=== PATIENT | male | born 1990 | race American Indian/Alaskan Native ===

== ENCOUNTER 2018-05-27 00:48 | Emergency (ER) | payer MEDICAID, OTHER ==
--- NOTE | 2018-05-27 01:27 | EDM.PDOC ---
ED HPI GENERAL MEDICAL PROBLEM - General Chief Complaint: Back Pain or Injury Stated Complaint: LOWER BACK PAIN [id number] Time Seen by Provider: 05/27/18 00:55 Source of Information: Reports: Patient History Limitations: Reports: No Limitations - History of Present Illness INITIAL COMMENTS - FREE TEXT/NARRATIVE: presents with c/o low back pain constant but worse at times with shooting pain around both sides and at times to testicle area or rectal area. No fever or chills, No injury no abdominal pain, no nausea or vomiting. No difficulty with urination, no burning, frequency or discharge. Denies concern for STD. Pain not affected by movement. One dose tylenol 2000mg one time around 2 pm but did not help. 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 [No Known Home Meds] 05/27/18 [History] Past Medical History - Past Health History Medical/Surgical History: Denies Medical/Surgical History - Past Surgical History Other Musculoskeletal Surgeries/Procedures:: fracture both arms Social & Family History - Tobacco Use Smoking Status *Q: Never Smoker - Caffeine Use Caffeine Use: Reports: Soda - Recreational Drug Use Recreational Drug Use: No ED ROS GENERAL - Review of Systems Review Of Systems: ROS reveals no pertinent complaints other than HPI. ED EXAM,LOWER BACK PAIN/INJURY - Physical Exam Exam: See Below Exam Limited By: No Limitations General Appearance: Alert, No Apparent Distress (moves easily no guarding.) Eye Exam: Bilateral Eye: EOMI Ears: Normal External Exam Nose: Normal Inspection Throat/Mouth: Normal Inspection, Normal Voice Head: Atraumatic, Normocephalic Neck: Normal Inspection Respiratory/Chest: No Respiratory Distress, Lungs Clear, Normal Breath Sounds Cardiovascular: Normal Peripheral Pulses, Regular Rate, Rhythm GI/Abdominal: Soft, Non-Tender Back Exam: Full Range of Motion. No: CVA Tenderness (L), CVA Tenderness (R), Paraspinal Tenderness, Vertebral Tenderness Extremities: Normal Inspection, Normal Range of Motion Neurological: Alert, Normal Mood/Affect, Normal Dorsiflexion, CN II-XII Intact, Normal Plantar Flexion, Normal Gait, Normal Reflexes, No Motor/Sensory Deficits. No: Straight Leg Raise (L), Straight Leg Raise (R), Difficulty Walking Psychiatric: Normal Affect Skin Exam: Warm, Dry, Intact, Normal Color Course - Vital Signs Last Recorded V/S: Last Vital Signs Temp 96.9 F 05/27/18 00:51 Pulse 86 05/27/18 00:51 Resp 19 05/27/18 00:51 BP 155/106 H 05/27/18 00:51 Pulse Ox 98 05/27/18 00:51 - Orders/Labs/Meds Orders: Active Orders 24 hr Category Date Time Status CHLAMYDIA AND GONORRHEA BY TMA Stat Lab 05/27/18 00:58 Received Labs: Laboratory Tests 05/27/18 05/27/18 Range/Units 00:58 00:58 Urine Color Yellow (YELLOW) Urine Appearance Clear (CLEAR) Urine pH 5.5 (5.0-9.0) Ur Specific [place] 1.010 (1.005-1.030) Urine Protein 30 H (NEGATIVE) Urine Glucose (UA) Negative (NEGATIVE) Urine Ketones Negative (NEGATIVE) Urine Occult Blood Trace-lysed H (NEGATIVE) Urine Nitrite Negative (NEGATIVE) Urine Bilirubin Negative (NEGATIVE) Urine Urobilinogen 0.2 (0.2-1.0) mg/dL Ur Leukocyte Esterase Negative (NEGATIVE) Urine RBC 0-5 /HPF Urine WBC 0-5 (0-5/HPF) /HPF Ur Epithelial Cells Few /HPF Urine Bacteria Few (0-FEW/HPF) /HPF Urine Opiates Screen Negative (NEGATIVE) Ur Oxycodone Screen Negative (NEGATIVE) Urine Methadone Screen Negative (NEGATIVE) Ur Barbiturates Screen Negative (NEGATIVE) U Tricyclic Antidepress Negative (NEGATIVE) Ur Phencyclidine Scrn Negative (NEGATIVE) Ur Amphetamine Screen Negative (NEGATIVE) U Methamphetamines Scrn Negative (NEGATIVE) Urine MDMA Screen Negative (NEGATIVE) U Benzodiazepines Scrn Negative (NEGATIVE) Urine Cocaine Screen Negative (NEGATIVE) U Marijuana (THC) Screen Negative (NEGATIVE) Departure - Departure Time of Disposition: 01:24 Disposition: Home, Self-Care 01 Condition: Good Clinical Impression: Back pain Qualifiers: Back pain location: low back pain Chronicity: acute Back pain laterality: bilateral Sciatica presence: without sciatica Qualified Code(s): M54.5 - Low back pain - Discharge Information Instructions: Back Pain, Adult, [id number] Forms: ED Department Discharge Additional Instructions: light activity increase fluid intake alternate ibuprofen 600mg and tylenol 650mg every 4 hours as needed for discomfort follow up needed if weakness, increased pain, fever or chills - My Orders Last 24 Hours: My Active Orders 05/27/18 00:58 CHLAMYDIA AND GONORRHEA BY TMA Stat - Assessment/Plan Last 24 Hours: My Active Orders 05/27/18 00:58 CHLAMYDIA AND GONORRHEA BY TMA Stat
== END 2018-05-27 01:32 | disposition home or self-care (01) ==
LOC: DL.ED 00:48
DX: M54.5 Low back pain (principal)
CPT/HCPCS: 80305; 81001; 87491; 87591; 99283

== ENCOUNTER 2020-01-23 13:13 | Emergency (ER) | payer MEDICAID, OTHER ==
--- NOTE | 2020-01-23 16:07 | EDM.PDOC ---
Scribed by Barbara Perla 01/23/20 4515 for Autumn Castañeda NP ED HPI GENERAL MEDICAL PROBLEM - General Chief Complaint: Lower Extremity Injury/Pain Stated Complaint: LOWER BACK PAIN Time Seen by Provider: 01/23/20 13:35 Source of Information: Reports: Patient, RN, RN Notes Reviewed History Limitations: Reports: No Limitations - History of Present Illness INITIAL COMMENTS - FREE TEXT/NARRATIVE: Patient is a 29-year-old male who presents to the ED with lower back pain x3 days. He states that he woke up this afternoon in pain. Pain is a rated as a 2/ 10 and described as an ache. He denies any injury, fall or trauma. He states he is not working and has been sitting and sleeping most of the time. He has Tylenol once for discomfort. He denies any saddle anesthesia. No history of back problems. Onset: Gradual Duration: Constant Location: Reports: Back Quality: Reports: Ache Severity: Mild Improves with: Reports: None Worsens with: Reports: None Associated Symptoms: Reports: No Other Symptoms Lower Back Pain Score (Numeric/FACES): 6 - Related Data Allergies Allergy/AdvReac Type Severity Reaction Status Date / Time No Known Allergies Allergy Verified 01/23/20 13:43 Home Meds: Home Meds Acetaminophen [Tylenol] 650 mg PO Q6HR PRN 01/23/20 [History] Past Medical History - Past Health History Medical/Surgical History: Denies Medical/Surgical History - Past Surgical History Other Musculoskeletal Surgeries/Procedures:: fracture both arms Social & Family History - Tobacco Use Smoking Status *Q: Never Smoker - Caffeine Use Caffeine Use: Reports: Soda, Tea - Recreational Drug Use Recreational Drug Use: No Review of Systems - Review of Systems Review Of Systems: Comprehensive ROS is negative, except as noted in HPI. ED EXAM, GENERAL - Physical Exam Exam: See Below Exam Limited By: No Limitations General Appearance: Alert, WD/WN, No Apparent Distress Respiratory/Chest: No Respiratory Distress, Lungs Clear, Normal Breath Sounds, No Accessory Muscle Use, Chest Non-Tender Cardiovascular: Normal Peripheral Pulses, Regular Rate, Rhythm, No Edema, No Gallop, No JVD, No Murmur, No Rub GI/Abdominal: Normal Bowel Sounds, Soft, Non-Tender, No Organomegaly, No Distention, No Abnormal Bruit, No Mass Back Exam: Normal Inspection, Full Range of Motion, Other (mild pain noted with palpation at L4-5 with no radiation. ) Neurological: Alert, Oriented Psychiatric: Normal Affect, Normal Mood Skin Exam: Warm, Dry, Intact, Normal Color, No Rash Course - Vital Signs Last Recorded V/S: Last Vital Signs Temp 97.6 F 01/23/20 13:39 Pulse 108 H 01/23/20 13:39 Resp 18 01/23/20 13:39 BP 167/97 H 01/23/20 13:39 Pulse Ox 99 01/23/20 13:39 - Re-Assessments/Exams Free Text/Narrative Re-Assessment/Exam: Exam findings reviewed with patient. Encouraged applying heat/ice interchangeably. Tylenol and Ibuprofen with meals p.r.n. for pain. Follow up with PCP next week, if symptoms worsen. Departure - Departure Time of Disposition: 16:05 Disposition: Home, Self-Care 01 Condition: Good Clinical Impression: Low back pain - Discharge Information Instructions: Back Exercises, [id number] Forms: ED Department Discharge Additional Instructions: Encouraged applying heat/ice interchangeably. Tylenol and Ibuprofen with meals p.r.n. for pain. Follow up with PCP next week, if symptoms worsen. Sepsis Event Note - Evaluation Sepsis Screening Result: No Definite Risk - Focused Exam Vital Signs: Vital Signs Temp Pulse Resp BP Pulse Ox 01/23/20 13:39 97.6 F 108 H 18 167/97 H 99 Date Exam was Performed: 01/23/20 Time Exam was Performed: 16:07 I have read and agree with the documentation that has been completed regarding this visit. By signing this record, I attest that the documentation was completed in my physical presence and is an accurate record of the encounter.
== END 2020-01-23 16:12 | disposition home or self-care (01) ==
LOC: DL.ED 13:13
DX: M54.5 Low back pain (principal)
CPT/HCPCS: 99282; 99283

== ENCOUNTER 2021-03-19 20:19 | Emergency (ER) | payer SELFPAY ==
[2021-03-19] MEDS ORDERED: Doxycycline Monohydrate 100 MG Cap PO ONE (20:20)
[2021-03-19] MEDS ORDERED: Doxycycline Monohydrate 100 MG Cap ONE (22:02)
[2021-03-19] MEDS ORDERED: Mupirocin Oint 22 GM Tube ONE (22:02)
--- NOTE | 2021-03-19 22:08 | EDM.PDOC ---
ED HPI GENERAL MEDICAL PROBLEM - General Chief Complaint: Skin Complaint Stated Complaint: SORE ON FACE / HEADACHE Time Seen by Provider: 03/19/21 21:25 Source of Information: Reports: Patient History Limitations: Reports: No Limitations - History of Present Illness INITIAL COMMENTS - FREE TEXT/NARRATIVE: sores to left side of face and forehead x 2 days. Location: Reports: Head, Face Left Face/Facial Pain Score (Numeric/FACES): 10 - Related Data Allergies Allergy/AdvReac Type Severity Reaction Status Date / Time No Known Allergies Allergy Verified 03/19/21 21:12 Home Meds: Home Meds Acetaminophen [Tylenol] 650 mg PO Q6HR PRN 01/23/20 [History] metFORMIN [Glucophage XR] 500 mg PO BIDMEALS 03/19/21 [History] Past Medical History - Past Health History Medical/Surgical History: Denies Medical/Surgical History Endocrine/Metabolic History: Reports: Diabetes, Type II - Past Surgical History Other Musculoskeletal Surgeries/Procedures:: fracture both arms Social & Family History - Tobacco Use Tobacco Use Status *Q: Never Tobacco User Second Hand Smoke Exposure: No - Caffeine Use Caffeine Use: Reports: None - Recreational Drug Use Recreational Drug Use: No ED ROS GENERAL - Review of Systems Review Of Systems: Comprehensive ROS is negative, except as noted in HPI. ED EXAM, SKIN/RASH Exam: See Below Exam Limited By: No Limitations General Appearance: Alert, Mild Distress Eye Exam: Bilateral Eye: EOMI, PERRL Ears: Normal External Exam, Hearing Grossly Normal Nose: Normal Inspection Throat/Mouth: Normal Inspection Head: Atraumatic, Normocephalic Neck: Normal Inspection Respiratory/Chest: No Respiratory Distress Cardiovascular: Normal Peripheral Pulses, Regular Rate, Rhythm GI/Abdominal: Soft Back Exam: Normal Inspection Extremities: Normal Inspection Neurological: Alert, Oriented, Normal Gait Skin: Warm, Dry, Other (abscess mid forehead brow line 1cm multiple small crusted sustules, scattered red patches scalp and left parietal hairline, , ) Course - Vital Signs Last Recorded V/S: Last Vital Signs Temp 96.8 F L 03/19/21 21:13 Pulse 99 03/19/21 21:13 Resp 20 03/19/21 21:13 BP 167/88 H 03/19/21 21:13 Pulse Ox 96 03/19/21 21:13 - Orders/Labs/Meds Meds: Medications Discontinued Medications Generic Name Dose Route Start Last Admin Trade Name Patricia PRN Reason Stop Dose Admin Doxycycline Monohydrate Confirm 03/19/21 22:02 Doxycycline Monohydrate 100 Mg Cap Administered 03/19/21 22:03 Dose 200 mg .ROUTE .STK-MED ONE Mupirocin Confirm 03/19/21 22:02 Mupirocin Oint 22 Gm Tube Administered 03/19/21 22:03 Dose 22 gm .ROUTE .STK-MED ONE Departure - Departure Time of Disposition: 22:03 Disposition: Home, Self-Care 01 Condition: Good Clinical Impression: Abscess - Discharge Information *PRESCRIPTION DRUG MONITORING PROGRAM REVIEWED*: No *COPY OF PRESCRIPTION DRUG MONITORING REPORT IN PATIENT MARCO: No Instructions: Skin Abscess, [id number] Forms: ED Department Discharge Additional Instructions: mupirocin to area twice daily doxycycline 100mg twice daily warm pack three times daily to abscess areas clinic follow up later this week to recheck alternate tylenol 650mg and ibuprofen 600mg every 4 hours as needed for discomfort Sepsis Event Note (ED) - Evaluation Sepsis Screening Result: No Definite Risk - Focused Exam Vital Signs: Vital Signs Temp Pulse Resp BP Pulse Ox 03/19/21 21:13 96.8 F L 99 20 167/88 H 96
== END 2021-03-19 22:11 | disposition home or self-care (01) ==
LOC: DL.ED 20:19
DX: L02.01 Cutaneous abscess of face (principal); E11.9 Type 2 diabetes mellitus without complications; Z79.84 Long term (current) use of oral hypoglycemic drugs
CPT/HCPCS: 99282; 99283; A9270-GY

== ENCOUNTER 2021-06-27 13:29 | Emergency (ER) | payer SELFPAY ==
--- NOTE | 2021-06-27 14:27 | EDM.PDOC ---
ED HPI GENERAL MEDICAL PROBLEM - General Chief Complaint: Diabetic Complaint Stated Complaint: HIGH BLOOD SUGAR Time Seen by Provider: 06/27/21 14:19 Source of Information: Reports: Patient, RN, RN Notes Reviewed History Limitations: Reports: No Limitations - History of Present Illness INITIAL COMMENTS - FREE TEXT/NARRATIVE: Tulio is a 31 y/o male with a history of DM II who presents to the ED via personal vehicle with complaints of high blood sugar and polydipsia. The patient reports he was diagnosed with DM II in March 2021 and has been out of his metformin since March 2021. He states he woke this morning and felt an increase in thirst which prompted him to check his blood sugar, something he has not done in over 30 days, with a reading of 449. He denies recent illness, fever, shaking chills, chest pain, shortness of breath, nausea, vomiting, diarrhea, abdominal pain, or dysuria. He has taken no medications for his blood sugar. He denies tobacco, alcohol, or recreational drug use. Treatments BRANCH GENERAL MANAGER: Reports: Other (see below) Other Treatments BRANCH GENERAL MANAGER: Bedside gluc - Related Data Allergies Allergy/AdvReac Type Severity Reaction Status Date / Time No Known Allergies Allergy Verified 06/27/21 13:50 Home Meds: Home Meds Acetaminophen [Tylenol] 650 mg PO Q6HR PRN 01/23/20 [History] metFORMIN [Glucophage XR] 500 mg PO BIDMEALS 03/19/21 [History] Past Medical History - Past Health History Medical/Surgical History: Denies Medical/Surgical History HEENT History: Reports: None Cardiovascular History: Reports: None Respiratory History: Reports: None Gastrointestinal History: Reports: None Genitourinary History: Reports: None Musculoskeletal History: Reports: None Neurological History: Reports: None Psychiatric History: Reports: None Endocrine/Metabolic History: Reports: Diabetes, Type II Hematologic History: Reports: None Immunologic History: Reports: None Dermatologic History: Reports: None - Infectious Disease History Infectious Disease History: Reports: None - Past Surgical History Head Surgeries/Procedures: Reports: None Other Musculoskeletal Surgeries/Procedures:: fracture both arms Social & Family History - Family History Family Medical History: No Pertinent Family History - Tobacco Use Tobacco Use Status *Q: Never Tobacco User - Caffeine Use Caffeine Use: Reports: Soda - Recreational Drug Use Recreational Drug Use: No ED ROS GENERAL - Review of Systems Review Of Systems: Comprehensive ROS is negative, except as noted in HPI. ED EXAM GENERAL NO PERIP PULSE - Physical Exam Exam: See Below Exam Limited By: No Limitations General Appearance: Alert, No Apparent Distress Eye Exam: Bilateral Eye: EOMI, Normal Inspection, PERRL (3m) Ears: Normal External Exam, Hearing Grossly Normal Nose: Normal Inspection, Normal Mucosa, No Blood Throat/Mouth: Normal Inspection, Normal Oropharynx, Normal Voice, No Airway Compromise Head: Atraumatic, Normocephalic Neck: Normal Inspection, Supple, Non-Tender, Full Range of Motion. No: Lymphadenopathy (L), Lymphadenopathy (R) Respiratory/Chest: No Respiratory Distress, Lungs Clear, Normal Breath Sounds, No Accessory Muscle Use, Chest Non-Tender Cardiovascular: Normal Peripheral Pulses, Regular Rate, Rhythm, No Edema, No Gallop, No JVD, No Murmur, No Rub, Tachycardia GI/Abdominal: Normal Bowel Sounds, Soft, Non-Tender, No Distention, No Abnormal Bruit, No Mass, Pelvis Stable (Male) Exam: Deferred Rectal (Males) Exam: Deferred Back Exam: Normal Inspection, Full Range of Motion Extremities: Normal Inspection, Normal Range of Motion, Non-Tender, Normal Capillary Refill, No Pedal Edema Neurological: Alert, Oriented, CN II-XII Intact, Normal Cognition, Normal Gait, No Motor/Sensory Deficits Psychiatric: Normal Affect, Normal Mood Skin Exam: Warm, Dry, Intact, Normal Color, No Rash Lymphatic: No Adenopathy Course - Vital Signs Last Recorded V/S: Last Vital Signs Temp 97.5 F 06/27/21 13:40 Pulse 102 H 06/27/21 13:40 Resp 16 06/27/21 13:40 BP 158/104 H 06/27/21 13:40 Pulse Ox 99 06/27/21 13:40 - Orders/Labs/Meds Orders: Active Orders 24 hr Category Date Time Status Blood Glucose Check, Bedside [RC] ONETIME Care 06/27/21 13:48 Active UA RFX LASHANDA AND CULT IF INDIC [URIN] Stat Lab 06/27/21 13:55 Ordered Labs: Laboratory Tests 06/27/21 06/27/21 06/27/21 Range/Units 13:37 14:03 14:03 WBC 10.0 (5.0-10.0) 10^3/uL RBC 5.33 (4.6-6.2) 10^6/uL Hgb 14.6 (14.0-18.0) g/dL Hct 42.2 (40.0-54.0) % MCV 79.2 L (80-100) fL MCH 27.4 (27.0-34.0) pg MCHC 34.6 (33.0-35.0) g/dL Plt Count 333 (150-450) 10^3/uL Neut % (Auto) 61.2 (42.2-75.2) % Lymph % (Auto) 28.1 (20.5-50.1) % [place] % (Auto) 7.6 (2-8) % Eos % (Auto) 2.0 (1.0-3.0) % Baso % (Auto) 1.1 H (0.0-1.0) % Sodium 138 (136-145) mmol/L Potassium 3.7 (3.5-5.1) mmol/L Chloride 98 (98-107) mmol/L Carbon Dioxide 28 (21-32) mmol/L Anion Gap 15.7 H (7-13) mEq/L BUN 13 (7-18) mg/dL Creatinine 0.99 (0.70-1.30) mg/dL Est Cr Clr Drug Dosing 103.64 mL/min Estimated GFR (MDRD) > 60 BUN/Creatinine Ratio 13.1 (No establ ref range) Glucose 305 H (70-99) mg/dL POC Glucose 267 H (70-99) mg/dL Hemoglobin A1c (<5.7) % Calcium 8.6 (8.5-10.1) mg/dL Total Bilirubin 0.7 (0.2-1.0) mg/dL AST 63 H (15-37) U/L ALT 186 H (16-63) U/L Alkaline Phosphatase 193 H (46-116) U/L Total Protein 8.5 H (6.4-8.2) g/dL Albumin 3.8 (3.4-5.0) g/dL Globulin 4.7 Albumin/Globulin Ratio 0.8 Ketones Negative 06/27/21 Range/Units 14:03 WBC (5.0-10.0) 10^3/uL RBC (4.6-6.2) 10^6/uL Hgb (14.0-18.0) g/dL Hct (40.0-54.0) % MCV (80-100) fL MCH (27.0-34.0) pg MCHC (33.0-35.0) g/dL Plt Count (150-450) 10^3/uL Neut % (Auto) (42.2-75.2) % Lymph % (Auto) (20.5-50.1) % [place] % (Auto) (2-8) % Eos % (Auto) (1.0-3.0) % Baso % (Auto) (0.0-1.0) % Sodium (136-145) mmol/L Potassium (3.5-5.1) mmol/L Chloride (98-107) mmol/L Carbon Dioxide (21-32) mmol/L Anion Gap (7-13) mEq/L BUN (7-18) mg/dL Creatinine (0.70-1.30) mg/dL Est Cr Clr Drug Dosing mL/min Estimated GFR (MDRD) BUN/Creatinine Ratio (No establ ref range) Glucose (70-99) mg/dL POC Glucose (70-99) mg/dL Hemoglobin A1c 9.4 H (<5.7) % Calcium (8.5-10.1) mg/dL Total Bilirubin (0.2-1.0) mg/dL AST (15-37) U/L ALT (16-63) U/L Alkaline Phosphatase (46-116) U/L Total Protein (6.4-8.2) g/dL Albumin (3.4-5.0) g/dL Globulin Albumin/Globulin Ratio Ketones - Re-Assessments/Exams Free Text/Narrative Re-Assessment/Exam: 06/27/21 Findings of examination, and lab work reviewed with patient. Will treat hyperglycemia with prescription of glucophage XR 500mg BID, per his previous prescription, for three days. Patient instructed to follow up with PCP regarding today's visit and ongoing prescription management. Red flag signs and symptoms which would warrant reevaluation reviewed. Patient verbalized understanding and agreement with the plan of care. Departure - Departure Time of Disposition: 15:06 Disposition: Home, Self-Care 01 Condition: Good Clinical Impression: Hyperglycemia Diabetes mellitus Qualifiers: Diabetes mellitus type: type 2 Diabetes mellitus rn long term care insulin use: without rn long term care use Diabetes mellitus complication status: without complication Qualified Code(s): E11.9 - Type 2 diabetes mellitus without complications - Discharge Information *PRESCRIPTION DRUG MONITORING PROGRAM REVIEWED*: Not Applicable *COPY OF PRESCRIPTION DRUG MONITORING REPORT IN PATIENT MARCO: Not Applicable Instructions: Type 2 Diabetes Mellitus, Diagnosis, Adult, Type 2 Diabetes Mellitus, Self Care, Adult Forms: ED Department Discharge Additional Instructions: Rx: glucophage XR 1.) Follow up with your primary care provider regarding today's visit. You will require a visit to get your prescriptions refilled. 2.) Take your metformin when you get home with some food. Then, tomorrow as normal. 3.) Drink plenty of water to stay hydrated. 4.) Continue monitoring your blood sugars daily. Sepsis Event Note (ED) - Evaluation Sepsis Screening Result: No Definite Risk - Focused Exam Vital Signs: Vital Signs Temp Pulse Resp BP Pulse Ox 06/27/21 13:40 97.5 F 102 H 16 158/104 H 99 - My Orders Last 24 Hours: My Active Orders 06/27/21 13:48 Blood Glucose Check, Bedside [RC] ONETIME 06/27/21 13:55 UA RFX LASHANDA AND CULT IF INDIC [URIN] Stat - Assessment/Plan Last 24 Hours: My Active Orders 06/27/21 13:48 Blood Glucose Check, Bedside [RC] ONETIME 06/27/21 13:55 UA RFX LASHANDA AND CULT IF INDIC [URIN] Stat
[2021-06-27 14:34] LABS: ANION GAP 15.7 mEq/L (7-13); CHLORIDE,CL 98 mmol/L (98-107); SODIUM,NA 138 mmol/L (136-145)
[2021-06-27 14:40] LABS: HEMOGLOBIN A1C 9.4 % (<5.7)
== END 2021-06-27 15:40 | disposition home or self-care (01) ==
LOC: DL.ED 13:29
DX: E11.65 Type 2 diabetes mellitus with hyperglycemia (principal); Z79.84 Long term (current) use of oral hypoglycemic drugs
CPT/HCPCS: 36415; 80053; 82009; 82947; 83036; 85025; 99283; 99284

== ENCOUNTER 2021-08-07 21:25 | Emergency (ER) | payer SELFPAY ==
[2021-08-07] MEDS ORDERED: Benzonatate 100 MG Cap PO ONE (22:34)
[2021-08-07 23:18] LABS: ANION GAP 14.6 mEq/L (7-13); CHLORIDE,CL 101 mmol/L (98-107); SODIUM,NA 138 mmol/L (136-145)
--- NOTE | 2021-08-07 23:30 | EDM.PDOC ---
ED HPI GENERAL MEDICAL PROBLEM - General Chief Complaint: Respiratory Problem Stated Complaint: COVID SYMPTOMS AND EXPOSURE Time Seen by Provider: 08/07/21 22:10 Source of Information: Reports: Patient History Limitations: Reports: No Limitations - History of Present Illness INITIAL COMMENTS - FREE TEXT/NARRATIVE: ED with COVID c/o. Reports loss of taste and smell since , cough body aches since Friday. Decreased appetite , drinking fluids well. No SOB. Family also ill with similar symptoms. fatigue. Treatments [employer]: Reports: Other (see below) Other Treatments [employer]: dual-action Ibuprofen and Dayquil Generalized Pain Score (Numeric/FACES): 6 - Related Data Allergies Allergy/AdvReac Type Severity Reaction Status Date / Time No Known Allergies Allergy Verified 08/07/21 22:56 Home Meds: Home Meds metFORMIN [Glucophage XR] 500 mg PO BIDMEALS 03/19/21 [History] Past Medical History - Past Health History Medical/Surgical History: Denies Medical/Surgical History HEENT History: Reports: None Cardiovascular History: Reports: None Respiratory History: Reports: None Gastrointestinal History: Reports: None Genitourinary History: Reports: None Musculoskeletal History: Reports: None Neurological History: Reports: None Psychiatric History: Reports: None Endocrine/Metabolic History: Reports: Diabetes, Type II Hematologic History: Reports: None Immunologic History: Reports: None Dermatologic History: Reports: None - Infectious Disease History Infectious Disease History: Reports: None - Past Surgical History Head Surgeries/Procedures: Reports: None Other Musculoskeletal Surgeries/Procedures:: fracture both arms Social & Family History - Family History Family Medical History: No Pertinent Family History - Tobacco Use Tobacco Use Status *Q: Never Tobacco User Second Hand Smoke Exposure: No - Caffeine Use Caffeine Use: Reports: None - Recreational Drug Use Recreational Drug Use: No ED ROS GENERAL - Review of Systems Review Of Systems: Comprehensive ROS is negative, except as noted in HPI. ED EXAM, GENERAL - Physical Exam Exam: See Below Exam Limited By: No Limitations General Appearance: Alert, No Apparent Distress Eye Exam: Bilateral Eye: EOMI Ears: Normal External Exam, Hearing Grossly Normal, Normal TMs Nose: Normal Inspection Throat/Mouth: Normal Inspection Head: Atraumatic, Normocephalic Neck: Normal Inspection Respiratory/Chest: No Respiratory Distress, Lungs Clear, Normal Breath Sounds, Other (dry intermittent cough) Cardiovascular: Normal Peripheral Pulses, Regular Rate, Rhythm GI/Abdominal: Normal Bowel Sounds, Soft, Non-Tender Extremities: Normal Inspection, Normal Range of Motion Neurological: Alert, Oriented Psychiatric: Normal Affect Skin Exam: Warm, Dry, Intact, Normal Color Course - Vital Signs Last Recorded V/S: Last Vital Signs Temp 98 F 08/07/21 22:03 Pulse 112 H 08/07/21 22:03 Resp 18 08/07/21 22:03 BP 155/104 H 08/07/21 22:03 Pulse Ox 98 08/07/21 22:03 - Orders/Labs/Meds Labs: Laboratory Tests 08/07/21 08/07/21 08/07/21 Range/Units 22:03 22:55 22:55 WBC 6.9 (5.0-10.0) 10^3/uL RBC 5.11 (4.6-6.2) 10^6/uL Hgb 13.9 L (14.0-18.0) g/dL Hct 42.0 (40.0-54.0) % MCV 82.2 D (80-100) fL MCH 27.2 (27.0-34.0) pg MCHC 33.1 (33.0-35.0) g/dL Plt Count 240 D (150-450) 10^3/uL Neut % (Auto) 72.7 (42.2-75.2) % Lymph % (Auto) 17.8 L (20.5-50.1) % [place] % (Auto) 8.5 H (2-8) % Eos % (Auto) 0.6 L (1.0-3.0) % Baso % (Auto) 0.4 (0.0-1.0) % Sodium 138 (136-145) mmol/L Potassium 3.6 (3.5-5.1) mmol/L Chloride 101 (98-107) mmol/L Carbon Dioxide 26 (21-32) mmol/L Anion Gap 14.6 H (7-13) mEq/L BUN 10 (7-18) mg/dL Creatinine 0.97 (0.70-1.30) mg/dL Est Cr Clr Drug Dosing 109.33 mL/min Estimated GFR (MDRD) > 60 BUN/Creatinine Ratio 10.3 (No establ ref range) Glucose 140 H (70-99) mg/dL Lactic Acid (0.4-2.0) mmol/L Calcium 8.6 (8.5-10.1) mg/dL Total Bilirubin 0.4 (0.2-1.0) mg/dL AST 38 H (15-37) U/L ALT 100 H (16-63) U/L Alkaline Phosphatase 164 H (46-116) U/L Total Protein 8.2 (6.4-8.2) g/dL Albumin 3.5 (3.4-5.0) g/dL Globulin 4.7 Albumin/Globulin Ratio 0.7 SARS-CoV-2 RNA ([facility]) Positive H (NEGATIVE) 08/07/21 Range/Units 22:55 WBC (5.0-10.0) 10^3/uL RBC (4.6-6.2) 10^6/uL Hgb (14.0-18.0) g/dL Hct (40.0-54.0) % MCV (80-100) fL MCH (27.0-34.0) pg MCHC (33.0-35.0) g/dL Plt Count (150-450) 10^3/uL Neut % (Auto) (42.2-75.2) % Lymph % (Auto) (20.5-50.1) % [place] % (Auto) (2-8) % Eos % (Auto) (1.0-3.0) % Baso % (Auto) (0.0-1.0) % Sodium (136-145) mmol/L Potassium (3.5-5.1) mmol/L Chloride (98-107) mmol/L Carbon Dioxide (21-32) mmol/L Anion Gap (7-13) mEq/L BUN (7-18) mg/dL Creatinine (0.70-1.30) mg/dL Est Cr Clr Drug Dosing mL/min Estimated GFR (MDRD) BUN/Creatinine Ratio (No establ ref range) Glucose (70-99) mg/dL Lactic Acid 1.1 (0.4-2.0) mmol/L Calcium (8.5-10.1) mg/dL Total Bilirubin (0.2-1.0) mg/dL AST (15-37) U/L ALT (16-63) U/L Alkaline Phosphatase (46-116) U/L Total Protein (6.4-8.2) g/dL Albumin (3.4-5.0) g/dL Globulin Albumin/Globulin Ratio SARS-CoV-2 RNA ([facility]) (NEGATIVE) Meds: Medications Discontinued Medications Generic Name Dose Route Start Last Admin Trade Name Patricia PRN Reason Stop Dose Admin Benzonatate 200 mg 08/07/21 22:34 08/07/21 22:39 Benzonatate 100 Mg Cap PO 08/07/21 22:35 200 mg ONETIME ONE Administration Departure - Departure Time of Disposition: 23:24 Disposition: Home, Self-Care 01 Condition: Good Clinical Impression: COVID - Discharge Information *PRESCRIPTION DRUG MONITORING PROGRAM REVIEWED*: No *COPY OF PRESCRIPTION DRUG MONITORING REPORT IN PATIENT MARCO: No Instructions: 10 Things You Can Do to Manage Your COVID-19 Symptoms at Home - [facility] (05/31/2020), COVID-19: Quarantine vs. Isolation - [facility] (11/16/2020), COVID- 19: What to Do if You Are Sick - [facility] (11/30/2020) Referrals: PCP,None [Primary Care Provider] - Forms: ED Department Discharge Additional Instructions: encourage fluids rest isolate 14 days from onset of symptoms tylenol 500mg every 4 hours as needed for discomfort/fever/ tessalon 200mg every 8 hours as needed for cough follow up if severe difficulty breathing good handwashing l Sepsis Event Note (ED) - Evaluation Sepsis Screening Result: No Definite Risk - Focused Exam Vital Signs: Vital Signs Temp Pulse Resp BP Pulse Ox 08/07/21 22:03 98 F 112 H 18 155/104 H 98
== END 2021-08-07 23:38 | disposition home or self-care (01) ==
LOC: DL.ED 21:25
DX: U07.1 COVID-19 (principal); E11.9 Type 2 diabetes mellitus without complications; Z79.84 Long term (current) use of oral hypoglycemic drugs
CPT/HCPCS: 36415; 80053; 83605; 85025; 87635; 99283; A9270; U0002